=== PATIENT | male | born 1945 | race Caucasian/White ===

== ENCOUNTER 2017-03-14 10:38 | Day surgery (SDC) | payer OTHER ==
[2017-03-13 09:23] VITALS: BMI 30.3
--- NOTE | 2017-03-14 11:21 | HP ---
History & Physical Update - History History: No Change - Physical Physical: No Change - Assessment Assessment: No Change - Plan Plan: No Change
--- NOTE | 2017-03-14 11:31 | OP ---
Operative Note - Note: Operative Date: 03/14/17 Pre-Operative Diagnosis: L hydrocele Operation: L hydrocelectomy Findings: L hydrocele Post-Operative Diagnosis: Same as Pre-op Surgeon: Chaparro Haro Anesthesiologist/CIGARETTE PACKAGE EXAMINER: Dinorah Stephens Anesthesia: General, Local Specimens Removed: portion of L hydrocele sac Estimated Blood Loss (mls): 0 Operative Report Dictated: Yes
[2017-03-14] MEDS ORDERED: PROPOFOL 20 ML ONE ×2 (11:38→11:53)
[2017-03-14] MEDS ORDERED: MIDAZOLAM HCL 2 MG/2 ML SINGLE DOSE VIAL ONE (11:39)
[2017-03-14] MEDS ORDERED: DEXAMETHASONE SOD PHOSPHATE 4 MG/1 ML VIAL ONE (11:54)
[2017-03-14] MEDS ORDERED: ceFAZolin SODIUM 1 GM VIAL ONE (11:54)
[2017-03-14] MEDS ORDERED: ceFAZolin SODIUM 1 GM VIAL IVPB ONE (12:01)
[2017-03-14] MEDS ORDERED: BUPIVACAINE HCL/PF 0.25% (2.5MG/ML) 10 ML VIAL IJ ONE (12:30)
[2017-03-14] MEDS ORDERED: oxyCODONE HCL 5 MG TABLET ONE (13:57)
[2017-03-14] MEDS ORDERED: ONDANSETRON 4 MG/2 ML VIAL IVPUSH PRN (14:06)
[2017-03-14] MEDS ORDERED: oxyCODONE HCL 5 MG TABLET PO PRN (14:06)
[2017-03-14] MEDS ORDERED: PROMETHAZINE HCL 25 MG/1 ML VIAL IVPUSH PRN (14:06)
[2017-03-14] MEDS ORDERED: LACTATED RINGERS SOLUTION 1,000 ML IV SCH (14:15)
[2017-03-14 14:50] VITALS: TEMP 97.7
[2017-03-14 16:25] VITALS: BP 138/73; PULSE 58
--- NOTE | 2017-03-15 13:32 | OP ---
DATE OF OPERATION: 03/14/2017 PREOPERATIVE DIAGNOSIS: Left hydrocele. POSTOPERATIVE DIAGNOSIS: Left hydrocele. PROCEDURE: Left hydrocelectomy. SURGEON: Chaparro Mcmanus MD ENGRAVER STEEL PLATE: None. ANESTHESIA: General via laryngeal mask. LUMBER INSPECTOR: Dinorah Stephens CRNA SPECIMENS: Portion of left hydrocele sac. CULTURES: None. DRAINS: None. ESTIMATED BLOOD LOSS: None. COMPLICATIONS: None. PROCEDURE: Patient was brought into the operating room. Placed on the operating table in a supine position. After the administration of general anesthesia via laryngeal mask, intravenous antibiotics were administered and the genitals were shaved first, then prepped and draped in the usual sterile manner. Eight mL of 0.5% Marcaine was injected into the neck of the scrotum into the spermatic cord for cord block. A left hemiscrotal transverse incision of approximately 5 cm was made in the mid scrotum. This was now carried down through the dartos layer until the tunica vaginalis was reached. Now, the tunica vaginalis was opened for a length of 1 cm with the scalpel. Five hundred mL of clear yellow hydrocele fluid was suctioned. The hydrocele sac/tunica vaginalis was now opened the length of the skin incision and the testicle was then delivered through the wound. Redundant hydrocele sac was now excised using electrocautery. Hemostasis was assured with electrocautery. The cut edge of the hydrocele sac was cauterized with electrocautery. The cut edge of the hydrocele sac was now oversewn in a running manner with running locked 3-0 Vicryl suture circumferentially. Hemostasis was assured. The testicle was then replaced within the scrotum in its proper orientation. Hemostasis was reassured. Now, the dartos layer was closed in a running manner with 2-0 Vicryl suture. The skin was closed with interrupted 4-0 chromic vertical mattress sutures. Dermabond was applied. Hemostasis was assured. Now, the wound was sterilely dressed with fluffs and mesh panties. He tolerated the procedure well. Transferred to the recovery room in stable condition. CHAPARRO MCMANUS M.D. [id number]
--- NOTE | 2017-03-17 12:12 | PATH ---
Surgical Pathology Report Patient Name: LALO CARROLL [facility]. Rec. #: [id number] /Age/Gender: 1945 (Age: 71) / M Account: [id number] Location: [facility] Taken: 03/14/2017 Received: 03/14/2017 Reported: 03/17/2017 Physicians: Chaparro Haro M.D. Specimen(s) Received A: HYDROCELE SAC B: HYDROCELE STONE Clinical History Hydrocele Final Diagnosis A. HYDROCELE SAC, LEFT, HYDROCELECTOMY: BENIGN FIBROMEMBRANOUS TISSUE WITH MESOTHELIAL LINING CONSISTENT WITH HYDROCELE SAC. B. HYDROCELE STONE: CALCULUS (GROSS EXAM). Electronically Signed Sebastian Mccormack M.D. Gross Description A. Received in formalin labeled "hydrocele sac" is a 7.0 x 3.0 x 1.2 cm portion of pink-stinson fibromembranous tissue. Active Directory Architect sections are submitted in one cassette. B. Received fresh labeled "hydrocele stone" is a 0.5 cm in greatest dimension stinson, irregular calculus which is sent for chemical analysis. /03/14/201703/14/2017
== END 2017-03-14 16:15 | disposition home or self-care (01) ==
LOC: JASU-SURG 10:38
PROVIDERS: ATTEND Urology
PROC: 0VBG0ZZ Excision of Left Spermatic Cord, Open Approach (ICD-10-PCS; principal; 2017-03-14 13:00)
DX: N43.3 Hydrocele, unspecified (principal)
CPT/HCPCS: 36415; 82360; 88300-TC; 88302-TC; 94760

== ENCOUNTER 2019-01-25 08:43 | Inpatient (IN) | payer OTHER ==
[2019-01-13 14:47] VITALS: BMI 29.0
--- NOTE | 2019-01-25 07:09 | HP ---
Admitting History and Physical - Admission Chief Complaint: right hip osteoarthritis x years History of Present Illness: 73 year old male presents in regard to his right hip. Long-standing history of right hip osteoarthritis. Patient complains of pain, limited range of motion, difficulty ambulating, and difficulty with activities of daily living. Patient has failed conservative treatment options including PO medications, activity modification, injections, and exercise programs. At this point, patient like to proceed with surgical intervention-right total hip arthroplasty MAKOplasty. History Source: Patient - Past Medical History Gastrointestinal: Yes: GERD Additional Past Medical History: Glaucoma - Past Surgical History Additional Past Surgical History: See written history & physical. - Advance Directives Advance Directives: Yes: Health Care Proxy - Smoking History Smoking history: Never smoked Aproximately how many cigarettes per day: 0 - Alcohol/Substance Use Hx Alcohol Use: No Home Medications - Allergies Allergies/Adverse Reactions: Allergies Allergy/AdvReac Type Severity Reaction Status Date / Time No Known Allergies Allergy Verified 01/13/19 14:32 - Home Medications Home Medications: Ambulatory Orders Brimonidine Tartrate/Timolol [Combigan Eye Drops] 1 drop OD BID 01/17/17 Dorzolamide HCl [Trusopt 2%] 1 drop OD BID 01/17/17 Ranitidine HCl [Zantac] 150 mg PO BID 01/17/17 Atropine 1% Ophth. Solution - 1 drop OS BID 01/13/19 Bimatoprost [Lumigan] 1 drop OD HS 01/13/19 Difluprednate [Durezol] 1 drop OS BID 01/13/19 Review of Systems - Review of Systems Musculoskeletal: reports: Decreased ROM (roght hip), Joint Pain (right hip), Joint Swelling (right hip) Physical Examination Constitutional: Yes: Well Nourished, No Distress Eyes: Yes: Conjunctiva Clear HENT: Yes: Atraumatic Neck: Yes: Supple Cardiovascular: Yes: Regular Rate and Rhythm Respiratory: Yes: Regular Gastrointestinal: Yes: Soft ...Rectal Exam: Yes: Deferred Musculoskeletal: Yes: Joint Stiffness (right hip), Joint Swelling (right hip) Assessment/Plan 73 year old male presents in regard to his right hip. Long-standing history of right hip osteoarthritis. Patient complains of pain, limited range of motion, difficulty ambulating, and difficulty with activities of daily living. Patient has failed conservative treatment options including PO medications, activity modification, injections, and exercise programs. At this point, patient like to proceed with surgical intervention-right total hip arthroplasty MAKOplasty. Pros , cons, risks, benefits, and alternatives of a right total hip arthroplasty MAKOplasty were discussed with the patient at length. Patient confirms his understanding and consents to proceed with a right total hip arthroplasty MAKOplasty.
[2019-01-25] MEDS ORDERED: LIDOCAINE 1% P/F 10 MG/ML VIAL ONE (10:46)
[2019-01-25] MEDS ORDERED: MIDAZOLAM HCL 2 MG/2 ML SINGLE DOSE VIAL ONE (10:46)
[2019-01-25] MEDS ORDERED: BUPIVACAINE HCL/PF (5 MG/ML) 30 ML VIAL IJ ONE (10:46)
[2019-01-25] MEDS ORDERED: DEXAMETHASONE SOD PHOSPHATE/PF 10 MG/ML SDV ONE (10:46)
[2019-01-25] MEDS ORDERED: VANCOMYCIN 1,000 MG VIAL (RESTRICTED TO ID ONLY) ONE (12:07)
[2019-01-25] MEDS ORDERED: TRANEXAMIC ACID 1000 MG/10 ML VIAL ONE ×2 (12:07→12:35)
[2019-01-25] MEDS ORDERED: ceFAZolin SODIUM 1 GM VIAL ONE ×2 (12:07→12:35)
[2019-01-25] MEDS ORDERED: ROPIVICAINE 0.2%/MORPH PF/KETOROLAC - 51ML DISP.SYRINGE IA ONE ×3 (12:11→15:27)
[2019-01-25] MEDS ORDERED: SUCCINYLCHOLINE CHLORIDE 200 MG/10 ML VIAL ONE (12:20)
[2019-01-25] MEDS ORDERED: PROPOFOL 20 ML ONE (12:20)
[2019-01-25] MEDS ORDERED: ONDANSETRON 4 MG/2 ML VIAL ONE (12:35)
[2019-01-25] MEDS ORDERED: DEXAMETHASONE SOD PHOSPHATE 4 MG/1 ML VIAL ONE (12:35)
[2019-01-25] MEDS ORDERED: ePHEDrine SULFATE 50 MG/1 ML AMPULE ONE (12:40)
[2019-01-25] MEDS ORDERED: TRANEXAMIC ACID 1000 MG/10 ML VIAL IVPB ONE ×2 (14:17→15:26)
[2019-01-25] MEDS ORDERED: VANCOMYCIN 1,000 MG VIAL (RESTRICTED TO ID ONLY) IVPB ONE ×2 (14:19→15:05)
[2019-01-25] MEDS ORDERED: ONDANSETRON 4 MG/2 ML VIAL IVPUSH PRN ×2 (14:36→16:48)
[2019-01-25] MEDS ORDERED: ACETAMINOPHEN 1000 MG/100 ML VIAL (NON FORMULARY) IVPB ONE ×3 (14:37→16:49)
[2019-01-25] MEDS ORDERED: oxyCODONE HCL 5 MG TABLET PO PRN ×2 (14:37)
[2019-01-25] MEDS ORDERED: LACTATED RINGERS SOLUTION 1,000 ML IV SCH ×2 (14:45→17:00)
[2019-01-25] MEDS ORDERED: KETOROLAC TROMETHAMINE 30 MG/1 ML VIAL IVPUSH ONE (16:00)
[2019-01-25] MEDS ORDERED: KETOROLAC TROMETHAMINE 30 MG/1 ML VIAL ONE (16:01)
[2019-01-25] MEDS ORDERED: ACETAMINOPHEN INJECTION 100 ML IVPB ONE (16:02)
[2019-01-25] MEDS ORDERED: traMADol HCL 50 MG TABLET ONE (16:02)
[2019-01-25] MEDS ORDERED: traMADol HCL 50 MG TABLET PO ONE (16:18)
--- NOTE | 2019-01-25 16:47 | OP ---
Operative Note - Note: Operative Date: 01/25/19 Pre-Operative Diagnosis: right hip OA Operation: right DIGNA RICKEY Post-Operative Diagnosis: Same as Pre-op Surgeon: Adnrey Bhatt Manager Secondary: Fidencio Monk Anesthesia: Spinal Estimated Blood Loss (mls): 300
[2019-01-25] MEDS ORDERED: MAGNESIUM HYDROX 2400MG/30ML ORAL SUSPENSION 30 ML CUP PO PRN (16:48)
[2019-01-25] MEDS ORDERED: MAG HYDROX/AL HYDROX/SIMETH 30 ML UNIT-DOSE CUP PO PRN (16:48)
[2019-01-25] MEDS: ACETAMINOPHEN 325 MG TABLET (FP) PO SCH ×2 (16:53→21:33)
[2019-01-25] MEDS: KETOROLAC TROMETHAMINE 30 MG/1 ML VIAL IVPUSH SCH ×2 (16:54→23:00)
[2019-01-25] MEDS: traMADol HCL 50 MG TABLET PO SCH ×2 (17:22→22:00)
--- NOTE | 2019-01-25 17:29 | SURG ---
Surgery Video Presentation Operator Note Video Presentation Operator: Fidencio Monk PA-C Date of Service: 01/25/19 Diagnosis: right hip OA Procedure: right DIGNA RICKEY I was present for the entirety of the operative procedure. For further detail, please refer to operative report. Visit type - Case Type Case Type: Scheduled - New patient This patient is new to me today: Yes Date on this admission: 01/25/19
[2019-01-25] MEDS: CEFAZOLIN 2 GM/D5W 2 GM/50 ML ML IVPB SCH (18:07)
[2019-01-25] MEDS: GABAPENTIN 300 MG CAPSULE (FP) PO SCH (21:33)
[2019-01-25] MEDS: RANITIDINE HCL 150 MG TABLET (FP) PO SCH (21:33)
[2019-01-25] MEDS: ASCORBIC ACID 500 MG TABLET (FP) PO SCH (21:33)
[2019-01-25] MEDS: SENNOSIDES/DOCUSATE COMBO (SENNA PLUS) TABLET (UD) PO SCH (21:33)
[2019-01-25] MEDS: CELECOXIB 200 MG CAPSULE PO SCH (21:33)
[2019-01-25] MEDS: DORZOLAMIDE 2% HCL OPHTHALMIC SOLUTION 10 ML BOTTLE OD SCH (21:34)
[2019-01-25] MEDS: TIMOLOL 0.5% OPHTHALMIC SOL 5 ML BOTTLE OD SCH (21:34)
[2019-01-25] MEDS: BRIMONIDINE TARTRATE 0.2% OPHTHALMIC 5 ML BOTTLE OD SCH (21:34)
[2019-01-25] MEDS: LATANOPROST 0.005% OPHTH SOLN 2.5ML BOTTLE OD SCH (21:35)
[2019-01-25] MEDS: ATROPINE SO4 1% OPHTH SOLN 5 ML BOTTLE OS SCH (21:35)
[2019-01-25] MEDS ORDERED: DIFLUPREDNATE OS SCH (22:00)
[2019-01-25] MEDS ORDERED: PATIENT'S OWN MEDICATION (NON-FORMULARY) (Brimonidine Tartrate/Timolol [Combigan 0.2%-0.5% OD SCH (22:00)
[2019-01-26] MEDS ORDERED: DEXAMETHASONE SOD PHOSPHATE 10 MG/1 ML VIAL IVPB ONE
[2019-01-26] MEDS: CEFAZOLIN 2 GM/D5W 2 GM/50 ML ML IVPB SCH (02:00)
[2019-01-26] MEDS: ACETAMINOPHEN 325 MG TABLET (FP) PO SCH ×4 (03:00→20:12)
[2019-01-26] MEDS: KETOROLAC TROMETHAMINE 30 MG/1 ML VIAL IVPUSH SCH ×2 (06:05→10:53)
[2019-01-26 08:11] LABS: HEMATOCRIT 33.5 % (35.4-49); HEMOGLOBIN 11.4 GM/dl (11.7-16.9); MCH 32.2 pg (25.7-33.7); MEAN CELL VOLUME 94.7 fl (80-96); MEAN PLT VOLUME 9.2 fl (7.5-11.1); PLATELET COUNT 176 K/MM3 (134-434); RBC 3.53 M/mm3 (4.00-5.60); WHITE BLOOD COUNT 10.4 K/mm3 (4.0-10.8)
[2019-01-26 08:35] LABS: ANION GAP 7 MMOL/L (8-16); BLOOD UREA NITROGEN 22 mg/dl (7-18); CALCIUM 8.6 mg/dl (8.5-10); CHLORIDE 106 mmol/L (98-107); CO2 23 mmol/L (21-32); CREATININE 0.7 mg/dl (0.55-1.3); GLUCOSE,RANDOM 149 mg/dl (74-106); POTASSIUM 4.3 mmol/L (3.5-5.1); SODIUM 136 mmol/L (136-145)
[2019-01-26] MEDS: ASPIRIN 325 MG TABLET PO SCH (09:00)
[2019-01-26] MEDS ORDERED: PT OWN MED DRAWER 7, Y5N ONE (09:16)
[2019-01-26] MEDS: MULTIVITAMINS (DAILY MVI) TABLET (FP) PO SCH (09:48)
[2019-01-26] MEDS: PANTOPRAZOLE 40 MG TABLET (FP) PO SCH (09:48)
[2019-01-26] MEDS: traMADol HCL 50 MG TABLET PO SCH ×4 (09:48→21:28)
[2019-01-26] MEDS: ASCORBIC ACID 500 MG TABLET (FP) PO SCH ×2 (09:51→21:29)
[2019-01-26] MEDS: GABAPENTIN 300 MG CAPSULE (FP) PO SCH ×2 (09:52→21:29)
[2019-01-26] MEDS: CELECOXIB 200 MG CAPSULE PO SCH ×2 (09:52→21:27)
[2019-01-26] MEDS: ATROPINE SO4 1% OPHTH SOLN 5 ML BOTTLE OS SCH ×2 (09:52→21:29)
[2019-01-26] MEDS: RANITIDINE HCL 150 MG TABLET (FP) PO SCH ×2 (09:52→21:30)
[2019-01-26] MEDS: DORZOLAMIDE 2% HCL OPHTHALMIC SOLUTION 10 ML BOTTLE OD SCH ×2 (09:53→21:30)
[2019-01-26] MEDS: TIMOLOL 0.5% OPHTHALMIC SOL 5 ML BOTTLE OD SCH ×2 (09:53→21:29)
[2019-01-26] MEDS: BRIMONIDINE TARTRATE 0.2% OPHTHALMIC 5 ML BOTTLE OD SCH ×2 (09:53→21:29)
[2019-01-26] MEDS: SENNOSIDES/DOCUSATE COMBO (SENNA PLUS) TABLET (UD) PO SCH ×2 (09:53→21:29)
--- NOTE | 2019-01-26 12:13 | PN ---
Progress Note, Physician Chief Complaint: s/p left total hip replacement under spinal anesthesia History of Present Illness: paravertebral block for post op pain control post op day one - Current Medication List Current Medications: Active Medications Acetaminophen (Tylenol -) 650 mg PO Q6H [facility] Stop: 01/28/19 14:44 Last Admin: 01/26/19 09:50 Dose: 650 mg Al Hydroxide/Mg Hydroxide (Mylanta Oral Suspension -) 30 ml PO Q4H PRN PRN Reason: DYSPEPSIA Ascorbic Acid (Vitamin C -) 500 mg PO BID [facility] Last Admin: 01/26/19 09:51 Dose: 500 mg Aspirin (Asa -) 325 mg PO DAILY@0800 [facility] Last Admin: 01/26/19 09:00 Dose: 325 mg Atropine Sulfate (Atropine 1% Ophth. Solution -) 1 drop OS BID [facility] Last Admin: 01/26/19 09:52 Dose: Not Given Brimonidine Tartrate (Alphagan 0.2% -) 1 drop OD BID [facility] Last Admin: 01/26/19 09:53 Dose: Not Given Celecoxib (Celebrex -) 200 mg PO BID [facility] Last Admin: 01/26/19 09:52 Dose: 200 mg Dorzolamide HCl (Trusopt 2%) 1 drop OD BID [facility] Last Admin: 01/26/19 09:53 Dose: Not Given Fentanyl (Sublimaze Injection -) 25 mcg IVPUSH [id number] PRN PRN Reason: PAIN-PACU ORDER X 4 DOSES ONLY Last Admin: 01/25/19 16:40 Dose: 25 mcg Gabapentin (Neurontin -) 300 mg PO BID [facility] Stop: 01/28/19 21:59 Last Admin: 01/26/19 09:52 Dose: 300 mg Latanoprost (Xalatan 0.005% Eye Drops -) 1 drop OD HS [facility] Last Admin: 01/25/19 21:35 Dose: Not Given Magnesium Hydroxide (Milk Of Magnesia -) 30 ml PO DAILY PRN PRN Reason: CONSTIPATION Multivitamins/Minerals/Vitamin C (Tab-A-Vit -) 1 tab PO DAILY [facility] Last Admin: 01/26/19 09:48 Dose: 1 tab Non-Formulary Medication (Difluprednate [Durezol]) 1 drop OS BID [facility] Ondansetron HCl (Zofran Injection) 4 mg IVPUSH Q6H PRN PRN Reason: NAUSEA AND/OR VOMITING Ondansetron HCl (Zofran Injection) 4 mg IVPUSH Q6H PRN PRN Reason: NAUSEA Oxycodone HCl (Roxicodone -) 5 mg PO Q3H PRN PRN Reason: PAIN LEVEL 1-5 Oxycodone HCl (Roxicodone -) 10 mg PO Q3H PRN PRN Reason: PAIN LEVEL 6-10 Pantoprazole Sodium (Protonix -) 40 mg PO DAILY [facility] Last Admin: 01/26/19 09:48 Dose: Not Given Ranitidine HCl (Zantac -) 150 mg PO BID [facility] Last Admin: 01/26/19 09:52 Dose: 150 mg Senna/Docusate Sodium (Pericolace -) 1 tablet PO BID [facility] Last Admin: 01/26/19 09:53 Dose: 1 tablet Timolol Maleate (Timoptic 0.5%) 1 drop OD BID [facility] Last Admin: 01/26/19 09:53 Dose: Not Given Tramadol HCl (Ultram -) 50 mg PO QID [facility] Last Admin: 01/26/19 09:48 Dose: 50 mg - Objective Vital Signs: Vital Signs Temperature 97.4 F L 01/26/19 06:00 Pulse Rate 92 H 01/26/19 06:00 Respiratory Rate 16 01/26/19 10:00 Blood Pressure 126/68 01/26/19 06:00 O2 Sat by Pulse Oximetry (%) 99 01/26/19 07:58 Constitutional: Yes: Well Nourished Cardiovascular: Yes: WNL Respiratory: Yes: WNL Gastrointestinal: Yes: WNL Labs: CBC, BMP 01/26/19 07:15 01/26/19 07:15 Assessment/Plan no adverse effect of anesthetic, pain controlled, no further intervention from anesthesiology
[2019-01-26] MEDS: LATANOPROST 0.005% OPHTH SOLN 2.5ML BOTTLE OD SCH (21:30)
--- NOTE | 2019-01-26 23:39 | PN ---
Progress Note (short form) - Note Progress Note: Pt seen and examined. Doing well. AVSS Selected Entries 01/26/19 22:42 Temperature 97.8 F Pulse Rate 84 Respiratory 18 Rate Blood Pressure 115/69 O2 Sat by Pulse 97 Oximetry (%) Oxygen Delivery Room Air Method Laboratory Tests 01/26/19 01/26/19 07:15 07:15 WBC 10.4 Hgb 11.4 L Hct 33.5 L Plt Count 176 Sodium 136 Potassium 4.3 Chloride 106 Carbon Dioxide 23 Anion Gap 7 L BUN 22 H Creatinine 0.7 Creat Clearance w eGFR 110.55 Random Glucose 149 H Calcium 8.6 Gen: NAD RLE: c/d/i, NVID A/P POD#1 s/p R RICKEY PT/OOB D/C home in AM
[2019-01-27] MEDS: oxyCODONE HCL 10 MG SUSTAINED ACTING TABLET PO SCH ×2 (00:23→09:10)
[2019-01-27] MEDS: ACETAMINOPHEN 325 MG TABLET (FP) PO SCH ×2 (02:09→09:08)
[2019-01-27 06:41] VITALS: BP 111/59; PULSE 98; TEMP 97.9
[2019-01-27 08:25] LABS: HEMOGLOBIN 11.9 GM/dl (11.7-16.9); MCH 32.1 pg (25.7-33.7); MCHC 33.9 g/dl (32.0-35.9); MEAN CELL VOLUME 94.7 fl (80-96); MEAN PLT VOLUME 9.7 fl (7.5-11.1); PLATELET COUNT 195 K/MM3 (134-434); RDW 12.9 % (11.9-15.9); WHITE BLOOD COUNT 12.3 K/mm3 (4.0-10.8)
[2019-01-27] MEDS: CELECOXIB 200 MG CAPSULE PO SCH (09:06)
[2019-01-27] MEDS: traMADol HCL 50 MG TABLET PO SCH (09:06)
[2019-01-27] MEDS: PANTOPRAZOLE 40 MG TABLET (FP) PO SCH (09:06)
[2019-01-27] MEDS: ASPIRIN 325 MG TABLET PO SCH (09:06)
[2019-01-27] MEDS: GABAPENTIN 300 MG CAPSULE (FP) PO SCH (09:07)
[2019-01-27] MEDS: SENNOSIDES/DOCUSATE COMBO (SENNA PLUS) TABLET (UD) PO SCH (09:07)
[2019-01-27] MEDS: ASCORBIC ACID 500 MG TABLET (FP) PO SCH (09:08)
[2019-01-27] MEDS: MULTIVITAMINS (DAILY MVI) TABLET (FP) PO SCH (09:08)
[2019-01-27] MEDS: BRIMONIDINE TARTRATE 0.2% OPHTHALMIC 5 ML BOTTLE OD SCH (09:09)
[2019-01-27] MEDS: DORZOLAMIDE 2% HCL OPHTHALMIC SOLUTION 10 ML BOTTLE OD SCH (09:10)
[2019-01-27] MEDS: TIMOLOL 0.5% OPHTHALMIC SOL 5 ML BOTTLE OD SCH (09:10)
[2019-01-27] MEDS: ATROPINE SO4 1% OPHTH SOLN 5 ML BOTTLE OS SCH (09:10)
[2019-01-27] MEDS: RANITIDINE HCL 150 MG TABLET (FP) PO SCH (09:11)
--- NOTE | 2019-01-27 10:54 | DS ---
Physical Examination Vital Signs: Vital Signs Temperature 97.9 F 01/27/19 06:00 Pulse Rate 98 H 01/27/19 06:00 Respiratory Rate 19 01/27/19 06:00 Blood Pressure 111/59 L 01/27/19 06:00 O2 Sat by Pulse Oximetry (%) 95 01/27/19 06:00 Labs: CBC, BMP 01/27/19 06:50 01/26/19 07:15 Discharge Summary Reason For Visit: OSTEOARTHRITIS RIGHT HIP Current Active Problems Osteoarthritis of right hip (Acute) Procedures: Principal: right DIGNA RICKEY Hospital Course: Admitted for elective surgery. Procedure performed without complications. Pt received postoperative antibiotic prophylaxis and DVT ppx. Ambulated with physical therapy. Stable for discharge home with outpatient followup. Condition: Stable - Instructions Diet, Activity, Other Instructions: Dr Bhatt - Hip Replacement Instructions Keep the Aquacel dressing on until removed by Dr. Bhatt in 10-14 days - it is antibacterial and waterproof and you can shower with it on. Call the office for a follow-up appointment with Dr. Bhatt in 10-14 days. Take one Aspirin 325mg daily for 6 weeks to prevent blood clots in your legs. Take one Pantoprazole 40mg daily (as needed) for 6 weeks to protect against heartburn and ulcers. Take Cephalexin (antibiotic) 3x/day for 10 days to help prevent skin infection. Take Celebrex 200mg daily for 30 days to reduce swelling and inflammation. Take a multivitamin, stool softener and extra Vitamin C supplement daily. For pain: *Mild pain (1-3/10): Take 1 Tramadol tablet every 4 hours as needed. Moderate pain (4-6/10): Take 1 Tramadol tablet and 1 Percocet tablet every 4 hours as needed. Severe pain (7-10/10): Take 1 Tramadol tablet and 2 Percocet tablets every 4 hours as needed. Activity: You can put as much weight on the operative leg as you want. For the first 6 weeks, all you need to do is walk around the house, go up/down stairs, and sit down/get up. After 6 weeks when everything is healed (and bone has grown into the implant) you will be sent for more intensive outpatient physical therapy. Always use a walker or cane for balance and to prevent falls. Expect to see swelling / bruising from the operative site all the way down to your toes. Wear the Compression stocking on the operative side during the day to minimize how much swelling there is in your foot/ankle. Don't wear the stocking at night. You don't have to wear the stocking on the other side. Disposition: VNS/HOME HEALTH CARE - Home Medications Comprehensive Discharge Medication List: Ambulatory Orders Brimonidine Tartrate/Timolol [Combigan 0.2%-0.5% Eye Drops] 1 drop OD BID Dorzolamide HCl [Trusopt 2% -] 1 drop OD BID 01/17/17 Ranitidine HCl [Zantac] 150 mg PO BID 01/17/17 Atropine 1% Ophth. Solution - 1 drop OS BID 01/13/19 Bimatoprost [Lumigan] 1 drop OD HS 01/13/19 Difluprednate [Durezol] 1 drop OS BID 01/13/19 Ascorbic Acid [Vitamin C -] 500 mg PO BID tablet 01/27/19 Aspirin [ASA -] 325 mg PO DAILY@0800 tablet 01/27/19 Celecoxib [CeleBREX -] 200 mg PO DAILY #30 capsule 01/27/19 Cephalexin Monohydrate [Keflex -] 500 mg PO TID #30 capsule 01/27/19 Multivitamins [Multivit ([facility] Formulary)] 1 tab PO DAILY tab 01/27/19 Oxycodone HCl/Acetaminophen [Percocet 5-325 mg Tablet] 1 - 2 tab PO Q4H PRN #60 tablet MDD 10 01/27/19 Pantoprazole Sodium [Protonix -] 40 mg PO DAILY #40 tablet.ec 01/27/19 Sennosides/Docusate Sodium [Pericolace -] 1 tablet PO BID tablet 01/27/19 traMADol HCL [Ultram -] 50 mg PO Q4H PRN #42 tablet MDD 6 01/27/19
--- NOTE | 2019-01-28 15:27 | PATH ---
Surgical Pathology Report Patient Name: LALO CARROLL Med. Rec. #: [id number] /Age/Gender: 1945 (Age: 73) / M Account: [id number] Location: [facility] Taken: 01/25/2019 Received: 01/25/2019 Reported: 01/28/2019 Physicians: Andrey Bhatt M.D. Specimen(s) Received RIGHT FEMORAL HEAD Clinical History Osteoarthritis right hip Final Diagnosis FEMORAL HEAD, RIGHT, TOTAL HIP REPLACEMENT: DEGENERATIVE JOINT DISEASE. Electronically Signed Karen Falcon M.D. Gross Description Received in formalin, labeled "right femoral head," is a 5.0 x 5.0 x 4.5 cm. femoral head with a 2.0 cm in length portion of femoral neck attached. The margin of resection is smooth. There is a 6 cm in greatest dimension area of eburnation present. The remaining articular surface is stinson-yellow and diffusely granular. The underlying trabecular bone is yellow and hard. A front desk representative section is submitted in one cassette, following decalcification. /01/26/2019 [facility]01/26/2019
--- NOTE | 2019-02-04 11:34 | SPEC ---
DATE OF OPERATION: 01/25/2019 PREOPERATIVE DIAGNOSIS: Right hip osteoarthritis. POSTOPERATIVE DIAGNOSIS: Right hip osteoarthritis. PROCEDURE: Right total hip replacement with MAKOplasty robotic navigation. ATTENDING SURGEON: Rosy Mandujano MD FIELD SALES ENGINEER: IGLESIA Meza ANESTHESIA: Spinal plus sedation. ESTIMATED BLOOD LOSS: 300 mL. COMPLICATIONS: None. DISPOSITION: The patient was transferred to the PACU in stable condition. IMPLANTS USED: Bharati Accolade size 8 femoral component, Bharati Tritanium 60-mm acetabular component with 25-, 30- and 15-mm screws, MDM bipolar head ball with inner +4-mm offset head. INDICATIONS: This is a 73-year-old male who presented to the office complaining of severe right hip pain. He was seen and examined by Dr. Mandujano and diagnosed with severe right hip osteoarthritis. The patient was initially treated nonoperatively with conservative measures but continued to have severe pain and ambulatory dysfunction. He was therefore indicated for a right total hip replacement. The risks, benefits and alternatives to the procedure were explained to the patient in great detail and he elected to proceed with the surgery. On the day of surgery, the patient was taken to the operating room and placed on the OR table. Spinal anesthesia was administered by the anesthesiologist. The patient was then positioned in the lateral decubitus position on the table and all bony prominences were padded. An axillary roll was placed. The operative hip was then prepped and draped in the usual sterile fashion and intravenous antibiotics were given for infection prophylaxis. A surgical timeout was then performed with the team, and the patients identity, procedure, side, availability of implants, and the administration of antibiotics were confirmed. An approximately 15-cm longitudinal incision was made through the skin centered on the greater trochanter of the hip. This dissection was carried down through the subcutaneous tissues to the deep fascia. This fascia was then incised and a Cobra was placed around the inferior femoral neck. Electrocautery was used to reflect the anterior 40% of the gluteus medius and minimus starting at the musculotendinous junction and leaving a cuff for closure. This was reflected to reveal the capsule of the hip joint. An anterior capsulectomy was performed and the femoral head and neck were visualized. Grade 4 changes were noted diffusely throughout the joint. At this point, 3 small stab incisions were made superior to the main incision along the iliac crest. Three self-drilling Steinmann pins were then placed and the DIGNA pelvic array was attached. Reference points on the limb were then entered into the robotic device and the limb length deficiency, offset, and femoral neck resection level were then calculated by the software. The hip was then dislocated with traction and external rotation. An oscillating saw was used to make the femoral neck cut at the level previously templated, and the femoral head was removed. Attention was then turned to the acetabulum. Retractors were then placed around the acetabulum and the labrum was removed. An acetabular checkpoint pin and the MySupportAssistant software were used to register the contours of the acetabulum. The acetabulum was then reamed in a single stage to the preoperatively templated size using the DIGNA robotic arm. The appropriately sized cup was then impacted and had solid fixation as well as the preset inclination and version of 40 and 20 degrees, respectively. A polyethylene liner was then placed in the cup. Attention was then turned back to the femur, which was externally rotated for improved visualization. A femoral neck elevator was used to present the femoral neck cut, a box osteotome was used to enter the femoral canal, and a canal finder was used to go down the femoral shaft. The DIGNA broaches were used sequentially until the optimal scratch fit was achieved. This correlated with the preoperatively templated size. From here, several different offset head and neck configurations were tested until excellent stability and length were obtained. These measurements were quantified using the MySupportAssistant software. All trial components were then removed, the femur was copiously irrigated, and the final components were placed. Leg length and stability were checked again and found to be excellent. Irrigation was performed again. Wound closure was started by repairing the abductor muscles with a No. 2 FiberWire stitch in a Krackow configuration passed through bone tunnels in the greater trochanter and tied over a bony bridge. This repair was then reinforced with a 0 V-Loc 180 barbed suture. Next, No. 1 Polysorb and 0 V-Loc 180 were used to close the fascia. The deep subcutaneous tissue was closed with No. 1 Polysorb sutures, and 2-0 Polysorb was used for the superficial subcutaneous tissue. The skin was closed using both 3-0 V-Loc 90 suture in a running subcuticular fashion and SwiftSet skin adhesive. The DIGNA array and pins were removed from the iliac crest and the stab incision sites were irrigated and closed with 4-0 Polysorb sutures and SwiftSet skin adhesive. Once this was completed, a sterile dressing was applied. The patient was then awakened and taken to the PACU in stable condition. ROSY MANDUJANO M.D. HAM/[id number]
== END 2019-01-27 12:28 | disposition home health service (06) | DRG 470 ==
LOC: FM/S 08:43
PROVIDERS: ADMIT Student in an Organized Health Care Education/Training Program; ATTEND Student in an Organized Health Care Education/Training Program
PROC: 8E0Y0CZ Robotic Assisted Procedure of Lower Extremity, Open Approach (ICD-10-PCS; 2019-01-25)
PROC: 0SR90JZ Replacement of Right Hip Joint with Synthetic Substitute, Open Approach (ICD-10-PCS; principal; 2019-01-25 13:10)
DX: M16.11 Unilateral primary osteoarthritis, right hip (principal)
CPT/HCPCS: 36415; 73502-TC-RT-FY; 80048; 85027; 86803; 87389; 88305-TC; 88311-TC; 94760; 97116-GP; 97163-GP; J0131; J1100

== ENCOUNTER 2023-08-26 11:21 | Emergency (ER) | payer OTHER ==
[2023-08-26 11:33] VITALS: BP 117/70; PULSE 93; RESP 16; TEMP 99.1; BMI 27.9
[2023-08-26 14:13] LABS: INR 1.16 (0.83-1.09); PROTHROMBIN TIME (PATIENT) 13.4 SEC (9.7-13.0)
[2023-08-26 14:17] LABS: ACTIVATED PTT 28.1 SECONDS (25.2-36.5)
[2023-08-26 14:24] LABS: HEMOGLOBIN 12.5 G/dL (11.7-16.9); MCH 31.4 pg (25.7-33.7); MCHC 32.9 g/dl (32.0-35.9); MEAN CELL VOLUME 95.5 fl (80-96); MEAN PLT VOLUME 8.2 fl (7.5-11.1); PLATELET COUNT 156.5 10^3/uL (134-434); RBC 3.98 10^6/uL (4.00-5.60); RDW 13.6 % (11.9-15.9); WHITE BLOOD COUNT 6.6 10^3/uL (4.0-10.8)
[2023-08-26 14:32] LABS: ALBUMIN 3.8 g/dl (3.4-5.0); BILIRUBIN,TOTAL 0.5 mg/dl (0.2-1); CALCIUM 9.3 mg/dl (8.5-10.1); CREATININE 0.7 mg/dl (0.6-1.3); POTASSIUM 4.1 mmol/L (3.5-5.1); TOT PROT 6.7 g/dl (6.4-8.2)
== END 2023-08-26 13:57 | disposition home or self-care (01) ==
LOC: FER 11:21
DX: M79.605 Pain in left leg (principal); I82.432 Acute embolism and thrombosis of left popliteal vein
CPT/HCPCS: 36415; 73590-TC-LT-FY; 73610-TC-LT-FY; 73630-TC-LT; 80053; 85027; 85610; 85730; 93971-TC; 99285-25

== ENCOUNTER 2024-08-30 13:38 | Emergency (ER) | payer OTHER ==
[2024-08-30 16:51] LABS: HEMATOCRIT 40.2 % (35.4-49); HEMOGLOBIN 13.8 GM/dL (11.7-16.9); MCH 31.9 pg (25.7-33.7); MCHC 34.3 g/dl (32.0-35.9); MEAN PLT VOLUME 8.3 fl (7.5-11.1); PLATELET COUNT 203 10^3/uL (134-434); RBC 4.33 M/mm3 (4.00-5.60); RDW 13.6 % (11.9-15.9); WHITE BLOOD COUNT 9.6 K/mm3 (4.0-10.0)
[2024-08-30 17:17] LABS: POTASSIUM 3.7 mmol/L (3.5-5.1)
[2024-08-30 17:19] LABS: CALCIUM 9.1 mg/dL (8.5-10.1)
[2024-08-30 17:20] LABS: ALBUMIN 3.7 g/dl (3.4-5.0); BLOOD UREA NITROGEN 23.4 mg/dL (7-18)
[2024-08-30 17:22] LABS: CREATININE 0.9 mg/dL (0.55-1.3)
[2024-08-30 17:25] LABS: BILIRUBIN,TOTAL 0.8 mg/dL (0.2-1); TOT PROT 7.6 g/dl (6.4-8.2)
[2024-08-30] MEDS ORDERED: levETIRAcetam 500 MG/5 ML INJECTION VIAL IVPB ONE (19:36)
[2024-08-30] MEDS: levETIRAcetam 500 MG/5 ML INJECTION VIAL IVPB ONE ×2 (19:40)
[2024-08-30 19:51] VITALS: BMI 27.6
[2024-08-30 20:05] VITALS: BP 117/75; RESP 18; TEMP 98.5
[2024-08-30 21:15] VITALS: PULSE 79
== END 2024-08-30 21:15 | disposition short-term general hospital (02) ==
LOC: JER 13:38
PROC: 3E0333Z Introduction of Anti-inflammatory into Peripheral Vein, Percutaneous Approach (ICD-10-PCS; principal; 2024-08-30)
DX: S06.360A Traumatic hemorrhage of cerebrum, unspecified, without loss of consciousness, initial encounter (principal); R41.82 Altered mental status, unspecified; M54.2 Cervicalgia; R07.9 Chest pain, unspecified; M54.9 Dorsalgia, unspecified; V47.5XXA Car driver injured in collision with fixed or stationary object in traffic accident, initial encounter; Y92.410 Unspecified street and highway as the place of occurrence of the external cause
CPT/HCPCS: 36415; 70450-TC; 71046-TC-FY; 80053; 84484; 85027; 93005; 93010; 96374; 99285-25